=== PATIENT | female | born 1990 | race African-American/Black ===

== ENCOUNTER 2022-10-20 19:19 | Emergency (ER) | payer MEDICARE, MEDICAID ==
[~2022-10-20] VITALS: Ht 157.5 cm; Wt 91.0 kg
[2022-10-20 19:40] VITALS: BP 115/76; O2SAT 100
[2022-10-20 21:13] VITALS: PULSE 82; RESP 18; TEMP 97.9
== END 2022-10-20 21:15 | disposition home or self-care (01) ==
LOC: ER 19:19
DX: S50.01XA Contusion of right elbow, initial encounter (principal); V49.50XA Passenger injured in collision with unspecified motor vehicles in traffic accident, initial encounter; Y93.89 Activity, other specified; Y92.89 Other specified places as the place of occurrence of the external cause; Y99.8 Other external cause status
CPT/HCPCS: 73080; 99283